=== PATIENT | female | born 1975 | race Caucasian/White ===

== ENCOUNTER 2022-06-17 14:18 | Outpatient (CLI) | payer MEDICAID, SELFPAY ==
[2022-06-17 23:08] LABS: Albumin* 4.8 g/dL (3.3-5.0); Chloride* 100 mmol/L (96-114); Sodium* 137 mmol/L (135-149)
[2022-06-17 23:09] LABS: Potassium* 4.3 mmol/L (3.6-5.1)
[2022-06-17 23:10] LABS: Bilirubin Total* 0.7 mg/dL (0.1-1.5); Creatinine* 0.7 mg/dL (0.5-1.5); Estimated Glomerular Filt Rate 106 ml/min
[2022-06-17 23:11] LABS: Alanine Aminotransferase* 22 U/L (4-35); Alkaline Phosphatase* 58 U/L (40-150); Aspartate Amino Transferase* 24 U/L (12-35); Blood Urea Nitrogen* 20 mg/dL (5-24); Calcium* 9.4 mg/dL (8.4-10.6); Carbon Dioxide* 29 mmol/L (20-32); Cholesterol* 229 mg/dL (90-199); Glucose* 77 mg/dL (60-115); Lipase* 75 U/L (23-300); Total Protein* 7.1 g/dL (6.0-8.3); Triglycerides* 126 mg/dL (40-149)
[2022-06-17 23:12] LABS: HDL Cholesterol* 53 mg/dL (>=50); LDL Cholesterol Calculated 151 mg/dL (<100)
== END 2022-06-17 14:19 | disposition home or self-care (01) ==
PROVIDERS: PCP Physician Assistant Medical; Visit Provider Physician Assistant Medical
DX: R10.13 Epigastric pain (principal)
CPT/HCPCS: 80053; 80061; 83690; 84443

== ENCOUNTER 2022-08-20 08:08 | Outpatient (CLI) | payer MEDICAID, SELFPAY ==
--- NOTE | 2022-08-20 08:15 | CRLHL7_ITS ---
For Patients: As a result of the Century Cures Act, medical imaging exams and procedure reports are released immediately into your electronic medical record. You may view this report before your referring provider. If you have questions, please contact your health care provider. INDICATION: Neck pain. COMPARISON: 03/08/2016. TECHNIQUE: Sagittal T1, T2, and STIR sequences. Axial T2/gradient sequences. FINDINGS: Normal vertebral body and facet alignment. No fractures. No vertebral body loss of height. No spondylolisthesis. No ligamentous injury. Normal marrow signal. No suspicious osseous lesions. Normal cord signal. No intradural mass or lesion. C1-2: No spinal canal narrowing. C2-3: No spinal canal neural foraminal narrowing. C3-4: Posterior disc bulge. No narrowing of spinal canal. No neural foraminal narrowing. C4-5: Disc degeneration posted disc bulge. No narrowing of spinal canal. No neural foraminal narrowing. C5-6: Stable disc degeneration with posterior disc bulge or disc osteophyte complex. Effacement of the ventral thecal sac and mild narrowing of the spinal canal. No neural foraminal narrowing. C6-7: Progress disc degeneration. Posterior disc bulging disc osteophyte complex. Mild narrowing of spinal canal. Moderate right and mild left neural foraminal narrowing. Potential impingement of the right C7 nerve root. C7-T1: Disc degeneration posterior disc bulge. No narrowing of spinal canal. Mild narrowing of the bilateral foramina. No spinal canal or neural foraminal narrowing in the visualized upper thoracic spine. Impression : 1. Normal alignment. No fractures 2. Normal cord signal. 3. Interval progression of cervical spondylosis. 4. At C5-6, stable disc degeneration with posterior disc bulge or disc osteophyte complex. Mild narrowing spinal canal. 5. At C6-7, mild narrowing of the spinal canal. Moderate right neural foraminal narrowing. Potential impingement of the right C7 nerve root. 6. At C7-T1, mild narrowing of the bilateral neural foramina Dictated by Charles Osorio MD @ 08/20/2022 3:55:43 PM (Electronically Signed)
== END 2022-08-20 08:09 | disposition home or self-care (01) ==
LOC: MRI 08:09
PROVIDERS: PCP Physician Assistant Medical; Visit Provider Physician Assistant Medical
DX: M54.2 Cervicalgia (principal); M47.892 Other spondylosis, cervical region; M50.322 Other cervical disc degeneration at C5-C6 level; M50.223 Other cervical disc displacement at C6-C7 level
CPT/HCPCS: 72141

== ENCOUNTER 2022-09-22 13:49 | Outpatient (CLI) | payer MEDICAID, SELFPAY ==
--- NOTE | 2022-09-22 14:00 | CRLHL7_ITS ---
For Patients: As a result of the Century Cures Act, medical imaging exams and procedure reports are released immediately into your electronic medical record. You may view this report before your referring provider. If you have questions, please contact your health care provider. BILATERAL SCREENING MAMMOGRAM WITH COMPUTER-AIDED DETECTION TECHNIQUE: CC and MLO views were obtained. These mammographic images have been obtained using full-field digital technique. These mammographic images were interpreted with the benefit of computer-aided detection. COMPARISON FILM: 08/04/21, 02/29/20, 01/30/19. FINDINGS: The breasts are almost entirely fatty IMPRESSION: There is no radiographic evidence for malignancy. ASSESSMENT: BI-RADS Category 2: Benign RECOMMENDATION: Routine screening mammogram in 1 year. A lay language report of this examination will be provided to the patient. Sp Smith M.D. Diagnostic Radiologist [email or web address] TYLER/no Transcribed: 2:03 [email or web address] sarabia/Dictated by: Sp Smith MD @ 09/23/2022 10:13:00 AM (Electronically Signed)
== END 2022-09-22 13:50 | disposition home or self-care (01) ==
PROVIDERS: PCP Physician Assistant Medical; Visit Provider Physician Assistant Medical
DX: Z12.31 Encounter for screening mammogram for malignant neoplasm of breast (principal)
CPT/HCPCS: 77067

== ENCOUNTER 2023-03-10 13:18 | Outpatient (CLI) | payer MEDICAID, SELFPAY ==
--- OUTSIDE RECORDS SUMMARY | 2023-03-10 13:21 | XMS_ITS | Continuity of Care Document ---
Author Name Unknown Organization [facility] Address [address] [place] [address] Phone Care Team Providers Care Supervising Producer Name Role Phone Bri HOWARD, PhD, Carlito Unavailable Unavai lable Allergies, Adverse Reactions, Alerts Substance Reaction Status Criticality No Known Allergies Active No Inform ation Medications Medication Instructions Dosage Effective Dates (start - stop) Status Comments FERROUS GLUCONATE (unknown strength) Not Available - Active CYMBALTA (unknown strength) Not Available - Active PROZAC (unknown strength) Not Available - Active TRAMADOL HCL ER (unknown strength) Not Available - Active GABAPENTIN (unknown strength) Not Available - Active AMITRIPTYLINE HCL (unknown strength) Not Available - Active HYDROCORTISONE (unknown strength) Not Available - Active TIROSINT (unknown strength) Not Available - Active PRAVASTATIN SODIUM (unknown strength) Not Available - Active Procedures Procedure Date Office/Outpatient Visit,[facility] [place] 2016 Advance Directives Directive Yes / No Effective Date File Name No Information Encounters Encounter Description Practice Location Reason(s) For Visit Diagnoses Date Provider Providers Copied on Encounter Office/Outpa tient Visit,[place], [place] [facility], [address], [place], [place], [id number] , [place] tel:[phone] [facility] [place] CervicalgiaLow back pain 7 Bri Esteban. [facility], [address], [place], [address], [place]. tel:[phone] Referring Provider: Jovanna Carr, [address], [address]. tel:[phone] [facility], [address], [place], [id number] , [place] tel: [phone] [facility] [place] Other intervertebral disc degeneration, lumbar regionCervicalgia 7 Bri Esteban. [facility], [address], [place], [address], [place]. tel: [phone] Family History Family Member Type Diagnosis Age At Onset No Information Payers Payer name Insurance type Covered alliance party ID Kristina nugent(s) [facility] [id number] [facility] [id number] Social History Type Description Quantity Date Captured Comments Alcohol Use Details Unknown Caffeine Use Details Unknown Tobacco Use Status Never smoked tobacco 2016 Smoking Status Never smoker Non-Smoking Tobacco Use Details : No Details Available : No Details Available Sex Female Vital Signs Date / Time: Height Weight BMI Pulse Rate Blood Pressure Temperature Respiratory Rate Body Surface Area Head Circumference Head Circ. Percentile Wt./Tay. Percentile BMI percentile Pulse Ox Inhaled Ox 1:31 PM 65.00 in 73.028 kg (161.00 lbs) 26.7 9 kg/m eter (2) 84 /min 129/84 mm[Hg] Chief Complaint And Reason For Visit No Information Reason For Referral Reason For Referral No Information History Of Present Illness Encounter Date Complaint History Of Prese nt Illness No Information Functional Status Date Functional Assessmen t No Information Instructions Date Instruction Additional Infor mation No Information Assessments Type Assessment Date assessment Cervicalgia assessment Low back pain Patient Care Teams Name Effective Dates (start - stop) Status Members No Information
[2023-03-10 23:25] LABS: Chlamydia DNA Amplified* NOT DETECTED (No Detected); GC DNA Amplified* NOT DETECTED (No Detected)
== END 2023-03-10 13:19 | disposition home or self-care (01) ==
LOC: LKVREF 13:19
PROVIDERS: PCP Physician Assistant Medical; Visit Provider Physician Assistant Medical
DX: Z00.00 Encounter for general adult medical examination without abnormal findings (principal); Z11.3 Encounter for screening for infections with a predominantly sexual mode of transmission
CPT/HCPCS: 87491; 87591

== ENCOUNTER 2023-03-16 08:12 | Outpatient (CLI) | payer MEDICAID, SELFPAY ==
--- OUTSIDE RECORDS SUMMARY | 2023-03-17 08:01 | XMS_ITS | Patient Health Record ---
Author Name Unknown Organization [facility] Address [address] [place] [address] [address] [place] [address] Care Team Providers Care Donor Services Technician Name Role Phone FabioЮлия shaikh Primary Care Provider Arias Simon Unavailable [phone] Frank Cochran Unavailable Unavailable ALLERGIES No Known Allergies REASON FOR REFERRAL No Information MEDICATIONS Medication SIG (Take, Route, Frequency, Duration) Notes Start Date End Date Status Lisinopril 10 MG 1 tablet Orally Once a day Active Atorvastatin Calcium 20 MG 1 tablet Oral ly Once a day Active Prazosin HCl 1 MG 1 capsule at bedtime Orally Once a day Active Levothyroxine Sodium 25 MCG 1 tablet in the morning on an empty stomach Orally Once a day Active Sucralfate 1 GM 1 tablet on an empty stomach Orally Twice a day Active Pantoprazole Sodium 40 MG 1 tablet Orall y Once a day Active DULoxetine HCl 60 MG 1 capsule Orally On ce a day Active busPIRone HCl 30 MG 1 tablet Orally Twic e a day Active lamoTRIgine 150 MG 1 tablet Orally Once a day Active SOCIAL HISTORY Tobacco Use: Social History Observation Description Date Details (start date - stop date) Never Smoker NA - NA Sex Assigned At : Social History Observation Description Sex Assigned At Unknown Tobacco Use/Smoking: Question Answer Notes Are you a nonsmoker PROBLEMS Problem Type ICD Code Onset Dates Problem Status W/U Status Risk SNOMED Code Notes Problem Radiculopathy , cervical region (M54.12) Active confirmed Cervical radiculopathy (00236239) Encounters Encounter Location Date Provider Diagnosis [facility] [address] [place] [address] [address] [place] [address] 10/11/2022 Arias Mcgill [facility] [address] [place] [address] [address] [place] [address] 11/03/2022 Arias [address] [facility] [address] [place] [address] 11/04/2022 Arias Mcgill Radiculopathy, cervical region M54.12 ASSESSMENTS Encounter Date Diagnosis Assessment Notes Treatment Notes Treatment Clinical Notes 11/04/2022 Radiculopathy, cervical region (ICD-10 - M54.12) PLAN OF TREATMENT No Information Insurance Providers Payer Name Payer Address Payer Phone Subscriber Number Group Number Insured Name Patient Relationship to Insured Coverage Start Date Coverage End Date [facility] [address] [address] [place], [place] [id number] Dee Santillan Self - patient is the insured 6 MEDICAL (GENERAL) HISTORY Medical History History ICD Code acid reflux anxiety asthma bipolar depression headaches high cholesterol hypertension sleep apnea Surgical History Surgery Date(Month/Year) breast reduction 2008 hyesterectomy 2019 deviated septum 2014 ablation 2014
== END 2023-03-16 08:13 | disposition home or self-care (01) ==
LOC: NFLDREF 03-17 08:00
PROVIDERS: PCP Physician Assistant Medical; Referring Provider Physician Assistant Medical; Visit Provider Physician Assistant Medical
DX: Z00.00 Encounter for general adult medical examination without abnormal findings (principal); R23.2 Flushing; G89.4 Chronic pain syndrome
CPT/HCPCS: 80053; 82607; 83001; 84443

== ENCOUNTER 2023-04-06 14:12 | Outpatient (CLI) | payer MEDICAID, SELFPAY ==
--- OUTSIDE RECORDS SUMMARY | 2023-04-06 14:15 | XMS_ITS | Continuity of Care Document ---
Author Name Unknown Organization [facility] Address [address] [place] [address] Phone Care Team Providers Care Cruller Maker Machine Name Role Phone Bri HOWARD, PhD, Carlito [...] - Active Procedures Procedure Date Office/[place]patient Visit[place] [facility] [place] Advance Directives Directive Yes / No Effective Date File Name No Information Encounters Encounter Description Practice Location Reason(s) For Visit Diagnoses Date Provider Providers Copied on Encounter Office/Outpa tient Visit,New, [facility], [address], [place], [place], [id number] , [place] tel:[phone] [facility] [place] CervicalgiaLow back pain 7 Bri Esteban. [facility], [address], [place], [address], [place]. tel:[phone] Referring Provider: Jovanna Carr, [address], [address]. tel:[phone] [facility], [address], [place], [id number] , [place] tel: [phone] [facility] [place] Other intervertebral disc degeneration, lumbar regionCervicalgia 7 Bri Esteban. [facility], [address], [place], [address], [place]. tel: [phone] Family History Family Member Type Diagnosis Age At Onset No Information Payers Payer name Insurance type Covered libertarian ID Kristina nugent(s) [facility] [id number] [facility] [id number] Social History Type Description Quantity Date Captured [...]
== END 2023-04-06 14:13 | disposition home or self-care (01) ==
PROVIDERS: PCP Physician Assistant Medical; Visit Provider Physician Assistant Medical
DX: Z01.818 Encounter for other preprocedural examination (principal); D64.9 Anemia, unspecified; K21.9 Gastro-esophageal reflux disease without esophagitis
CPT/HCPCS: 80175; 82607; 82746; 82784; 83540; 83550; 86364

== ENCOUNTER 2023-04-07 09:07 | Outpatient (CLI) | payer MEDICAID, SELFPAY ==
--- OUTSIDE RECORDS SUMMARY | 2023-04-13 08:27 | XMS_ITS | Continuity of Care Document ---
Author Name Unknown Organization [facility] Address [address] [place] [address] Phone Care Team Providers Care Manager Camp Name Role Phone Bri HOWARD, PhD, Carlito [...] Visit,New, Mod [facility], [address], [place], [place], [id number] , [place] tel:[phone] [facility] [place] CervicalgiaLow back pain 7 Bri Esteban. [facility], [address], [place], [address], [place]. tel:[phone] Referring Provider: Jovanna Carr, [address], [address]. tel:[phone] [facility], [address], [place], [id number] , [place] tel: [phone] [facility] [place] Other intervertebral disc degeneration, lumbar regionCervicalgia 7 Bri Esteban. [facility], [address], [place], [address], [place]. tel: [phone] Family History Family Member Type Diagnosis Age At Onset No Information Payers Payer name Insurance type Covered constitution party ID Kristina nugent(s) [facility] [id number] [facility] [id number] Social History Type Description Quantity Date Captured [...]
--- OUTSIDE RECORDS SUMMARY | 2023-04-13 08:27 | XMS_ITS | Patient Health Record ---
Author Name Unknown Organization [facility] Address [address] [place] [address] [address] [place] [address] Care Team Providers Care Ramp Supervisor Name Role Phone FabioЮлия shaikh Primary Care Provider Arias Simon Unavailable [phone] Frank Cochran Unavailable Unavailable ALLERGIES No Known [...] cervical region (M54.12) Active confirmed Cervical radiculopathy ([id number]) Encounters Encounter Location Date Provider Diagnosis [facility] [address] [place] [address] [address] [place] [address] 10/11/2022 Arias Mcgill [facility] [address] [place] [address] [address] [place] [address] 11/03/2022 [address] [facility] [address] [place] [address] 11/04/2022 Arias Mcgill Radiculopathy, cervical region M54.12 ASSESSMENTS Encounter Date Diagnosis Assessment Notes Treatment Notes Treatment Clinical Notes 11/04/2022 Radiculopathy, cervical region (ICD-10 - M54.12) PLAN OF TREATMENT No Information Insurance Providers Payer Name Payer Address Payer Phone Subscriber Number Group Number Insured Name Patient Relationship to Insured Coverage Start Date Coverage End Date [facility] [address] [address] [place], [place] [id number] Dee Santillan Self - patient is the insured 6 MEDICAL (GENERAL) HISTORY Medical History History ICD Code acid reflux anxiety asthma bipolar depression headaches high cholesterol hypertension sleep apnea Surgical History Surgery Date(Month/Year) breast reduction 2008 hyesterectomy 2019 deviated septum 2014 ablation 2014
== END 2023-04-07 09:08 | disposition home or self-care (01) ==
LOC: NFLDREF 04-13 08:25
PROVIDERS: PCP Physician Assistant Medical; Referring Provider Physician Assistant Medical; Visit Provider Physician Assistant Medical
DX: K21.9 Gastro-esophageal reflux disease without esophagitis (principal)
CPT/HCPCS: 87338

== ENCOUNTER 2023-04-18 13:35 | Outpatient (CLI) | payer MEDICAID, SELFPAY ==
--- NOTE | 2023-04-18 13:45 | CRLHL7_ITS ---
For Patients: As a result of the Cures Act, medical imaging exams and procedure reports are released immediately into your electronic medical record. You may view this report before your referring provider. If you have questions, please contact your health care provider. INDICATION: Syncope and collapse. TECHNIQUE: Sagittal T1, axial and coronal FLAIR axial T2, diffusion-weighted and susceptibility weighted images are obtained. FINDINGS: The lateral 3rd and 4th ventricles normal in size and shape. No evidence of acute ischemic infarction. No evidence of intracranial hemorrhage. No mass effect. No periventricular white matter lesions. The brainstem and cerebellum appear normal. The orbits, sella turcica, paranasal sinuses and skullbase are unremarkable. IMPRESSION: Negative MRI brain. No evidence of acute ischemic infarction, intracranial hemorrhage or mass. Dictated by Saud Lindsay MD @ 04/19/2023 10:12:03 AM (Electronically Signed)
--- OUTSIDE RECORDS SUMMARY | 2023-04-18 13:45 | XMS_ITS | Patient Health Record ---
Author Name Unknown Organization [facility] Address [address] [place] [address] [address] [place] [address] Care Team Providers Care Head Pastry Chef Name Role Phone FabioЮлия shaikh Primary Care Provider Arias Simon Unavailable [phone] Frank Cochran Unavailable Unavailable ALLERGIES No Known [...] cervical region (M54.12) Active confirmed Cervical radiculopathy ([id number]) Encounters Encounter Location Date Provider Diagnosis [facility] [address] [place] [address] [address] [place] [address] 10/11/2022 Arias Mcgill [facility] [address] [place] [address] [address] [place] [address] 11/03/2022 [address] [facility] [address] [place] [address] 11/04/2022 Arias Mcgill Radiculopathy, cervical region M54.12 ASSESSMENTS Encounter Date Diagnosis Assessment Notes Treatment Notes Treatment Clinical Notes 11/04/2022 Radiculopathy, cervical region (ICD-10 - M54.12) PLAN OF TREATMENT No Information Insurance Providers Payer Name Payer Address Payer Phone Subscriber Number Group Number Insured Name Patient Relationship to Insured Coverage Start Date Coverage End Date [facility] [address] [address] [place], [place] [id number] Dee Santillan Self - patient is the insured 6 MEDICAL (GENERAL) HISTORY Medical History History ICD Code acid reflux anxiety asthma bipolar depression headaches high cholesterol hypertension sleep apnea Surgical History Surgery Date(Month/Year) breast reduction 2008 hyesterectomy 2019 deviated septum 2014 ablation 2014
--- OUTSIDE RECORDS SUMMARY | 2023-04-18 13:45 | XMS_ITS | Continuity of Care Document ---
Author Name Unknown Organization [facility] Address [address] [place] [address] Phone Care Team Providers Care Vtc Technician Name Role Phone Bri HOWARD, PhD, Carlito [...] - Active Procedures Procedure Date Office/[place]patient Visit,[place] [place] Advance Directives Directive Yes / No Effective Date File Name No Information Encounters Encounter Description Practice Location Reason(s) For Visit Diagnoses Date Provider Providers Copied on Encounter Office/Outpa tient Visit,New, [place] [facility], [address], [place], [place], [id number] , [place] tel:[phone] [facility] [place] CervicalgiaLow back pain 7 Bri Esteban. [facility], [address], [place], [address], [place]. tel:[phone] Referring Provider: Jovanna Carr, [address], [address]. tel:[phone] [facility], [address], [place], [id number] , [place] tel: [phone] [facility] [place] Other intervertebral disc degeneration, lumbar regionCervicalgia 7 Bri Esteban. [facility], [address], [place], [address], [place]. tel: [phone] Family History Family Member Type Diagnosis Age At Onset No Information Payers Payer name Insurance type Covered libertarian ID Kristina nugent(s) [facility] [id number] [facility] [id number] Social History Type Description Quantity Date Captured [...]
== END 2023-04-18 13:36 | disposition home or self-care (01) ==
LOC: MRI 13:43
PROVIDERS: PCP Physician Assistant Medical; Visit Provider Physician Assistant Medical
DX: R55 Syncope and collapse (principal)
CPT/HCPCS: 70553; A9575

== ENCOUNTER 2023-06-15 11:25 | Emergency (ER) | payer MEDICAID, SELFPAY ==
[2023-06-15 11:29] VITALS: BP 133/89; PULSE 16; RESP 96; TEMP 36.8; O2SAT 99; BMI 25.2
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
[2023-06-15 11:55] LABS: Appearance Urine Clear (Clear); Bilirubin Urine Negative (Negative); Blood Urine Trace-intact (Negative); Color Urine Yellow (Yellow); Glucose Urine Negative (Negative); Ketones Urine Negative (Negative); Leukocyte Esterase Urine Negative (Negative); Nitrite Urine Negative (Negative); Protein Urine Negative (Negative); Urobilinogen Urine 0.2 (0.2-1.0)
[2023-06-15 12:19] LABS: RBC Urine 0-2 (0-2); WBC Urine 0-2 (0-5)
[2023-06-15 12:20] LABS: Amorphous Sediment Urine Few
--- OUTSIDE RECORDS SUMMARY | 2023-06-15 12:53 | XMS_ITS | Continuity of Care Document ---
Author Name Unknown Organization [facility] Address [address] [place] [address] Phone Care Team Providers Care Airbrush Artist Technical Name Role Phone Bri HOWARD, PhD, Carlito [...] - Active Procedures Procedure Date Office/Outpatient Visit,Demetrius [facility] 2016 Advance Directives Directive Yes / No Effective Date File Name No Information Encounters Encounter Description Practice Location Reason(s) For Visit Diagnoses Date Provider Providers Copied on Encounter Office/Outpa tient Visit,New, [place] [facility], [address], [place], [place], [id number] , [place] tel:[phone] [facility] [place] CervicalgiaLow back pain 7 Bri Esteban. [facility], [address], [place], [address], [place]. tel:[phone] Referring Provider: Jovanna Carr, [address], [address]. tel:[phone] [facility], [address], [place], [id number] , [place] tel: [phone] [facility] [place] Other intervertebral disc degeneration, lumbar regionCervicalgia 7 Bri Esteban. [facility], [address], [place], [address], [place]. tel: [phone] Family History Family Member Type Diagnosis Age At Onset No Information Payers Payer name Insurance type Covered green party ID Kristina nugent(s) [facility] [id number] [facility] [id number] Social History Type Description Quantity Date Captured [...]
--- NOTE | 2023-06-15 13:23 | ED.NURSE ---
Assumed care of pt at 1300. Patient talking to DEC senior power plant operator in room at this time. Pt on video monitoring for safety.
--- NOTE | 2023-06-15 13:50 | ED.NURSE ---
Addendum entered by Caitlin Sprague RN 06/15/23 14:10: Dr. Howell notified. Dr. Mccain is not pt's provider. Original Note: DEC assessment completed. Pt tearful in room. Dr. Mccain notified.
== END 2023-06-15 14:54 | disposition home or self-care (01) ==
PROVIDERS: Emergency Provider Emergency Medicine; PCP Physician Assistant Medical
DX: F32.A Depression, unspecified (principal)
CPT/HCPCS: 81001; 99281; 99283; 99284

== ENCOUNTER 2024-06-07 10:31 | Outpatient (CLI) | payer BC, SELFPAY ==
--- OUTSIDE RECORDS SUMMARY | 2024-06-12 15:32 | XMS_ITS | Patient Health Record ---
Author Organization [facility] Address [address] [place] [address] [address] [place] [address] Care Team Providers Care Systems Architecture Analyst Name Role Phone Юлия Rankin Primary Care Provider Arias Simon Unavailable [phone] Frank Segal PA-C Unavailable Unavailable Allergies No Known Allergies Reason For Referral No Information Medications Medication SIG (Take, Route, Frequency, Duration) Notes [...] 1 tablet Orally Once a day Active Social History Tobacco Use: Social History Observation Description Date Details (start date - stop date) Never Smoker NA - NA Tobacco Use/Smoking: Question Answer Notes Are you a nonsmoker Problems Problem Type SNOMED Code ICD Code Onset Dates Problem Status W/U Status Risk Notes Problem Cervical radiculopathy (65132773) Radiculopathy , cervical region (M54.12) Active confirmed Plan Of Treatment No Information Insurance Providers Payer Name Payer Address Payer Phone Subscriber Number Group Number Insured Name Patient Relationship to Insured Coverage Start Date Coverage End Date [facility] [address] [address] [place], [place] [id number] Dee Santillan Self - patient is the insured 6 Medical (General) History Medical History History ICD Code acid reflux anxiety asthma bipolar depression headaches high cholesterol hypertension sleep apnea Surgical History Surgery Date(Month/Year) ablation 2014 deviated septum 2014 hyesterectomy 2019 breast reduction 2008
--- OUTSIDE RECORDS SUMMARY | 2024-06-12 15:33 | XMS_ITS | Continuity of Care Document ---
Author Organization [facility] Address [address] [place] [address] Phone Care Team Providers Care Domestic Housekeeper Name Role Phone Bri HOWARD, PhD, Carlito [...] Procedures Procedure Date Office/Outpatient Visit,Demetrius [facility] 2016 Advance Directives Directive Yes / No Effective Date File Name No Information Encounters Encounter Description Practice Location Reason(s) For Visit Diagnoses Date Provider Providers Copied on Encounter Office/Outpa tient Visit,New, [facility], [address], [place], [place], [id number] , [place] tel:[phone] [facility] [place] CervicalgiaLow back pain 7 Bri Esteban. [facility], [address], [place], [address], [place]. tel:[phone] Referring Provider: Jovanna Maldonado, [address], [address]. tel:[phone] [facility], [address], [place], [id number] , [place] tel: [phone] [facility] [place] Other intervertebral disc degeneration, lumbar regionCervicalgia 7 Bri Esteban. [facility], [address], [place], [address], [place]. tel: [phone] Family History Family Member Type Diagnosis Age At Onset No Information Payers Payer name Insurance type Covered green party ID Kristina nugent(s) [facility] [id number] [facility] [id number] Social History Type Description Quantity Date Captured [...]
--- OUTSIDE RECORDS SUMMARY | 2024-06-12 15:33 | XMS_ITS | Clinical Summary ---
Author Organization [facility] Address [address] [place] [address] Care Team Providers Care Interstate Bus Driver Name Role Phone [facility]- Primary Care Provider Medications Medication Sig Dispensed Refills Start Date End Date Status busPIRone (BUSPAR) 15 MG tablet 08/08/2019 Active pravastatin (PRAVACHOL) 10 MG tablet Take 10 mg by mouth Active levothyroxine (SYNTHROID/LEVOTHROID) 25 MCG tablet Take 25 mcg by mouth Active gabapentin (NEURONTIN) 100 MG capsule Take 100 mg by mouth Active Social History Tobacco Use Types Packs/Day Years Used Date Smoking Tobacco: Never Assessed Adolescent Education Answer Date Record ed Getting School Help Needed Not on file 05/28 Sex and Gender Information Value Date Recorded Sex Assigned at Not on file Gender Identity Not on file Sexual Orientation Not on file Last Filed Vital Signs Vital Sign Reading Time Taken Comments Blood Pressure 109/76 09/17/2020 11:15 PM LAN MANAGER Pulse 91 09/17/2020 11:15 PM LAN MANAGER Temperature 35.9 ??C (96.7 ??F) 09/17/2020 9:45 PM CS T Respiratory Rate 20 09/17/2020 8:35 PM LAN MANAGER Oxygen Saturation 96% 09/17/2020 11:15 PM LAN MANAGER Inhaled Oxygen Concentration - - Weight - - Height - - Body Mass Index - - Plan of Treatment Not on file Care Teams Interstate Bus Driver Relationship Specialty Start Date End Date [facility]- [address] [place], [place] [phone] PCP - General 09/17/20
--- OUTSIDE RECORDS SUMMARY | 2024-06-12 15:33 | XMS_ITS | Referral Summary ---
Author Organization [facility] Address [address] [place] [address] Care Team Providers Care Recreation Therapy Aides Teacher Name Role Phone [facility]- Primary Care Provider Medications Medication Sig Dispensed [...] Comments Blood Pressure 109/76 09/17/2020 11:15 PM [employer] MACHINE OPERATOR Pulse 91 09/17/2020 11:15 PM [employer] MACHINE OPERATOR Temperature 35.9 ??C (96.7 ??F) 09/17/2020 9:45 PM CS T Respiratory Rate 20 09/17/2020 8:35 PM [employer] MACHINE OPERATOR Oxygen Saturation 96% 09/17/2020 11:15 PM [employer] MACHINE OPERATOR Inhaled Oxygen Concentration - - Weight - - Height - - Body Mass Index - - Plan of Treatment Not on file Care Teams Recreation Therapy Aides Teacher Relationship Specialty Start Date End Date [facility]- [address] [place], [place] [phone] PCP - General 09/17/20
--- OUTSIDE RECORDS SUMMARY | 2024-06-12 15:33 | XMS_ITS | Clinical Summary ---
Author Organization [facility] Address [place], [place] [address] Care Team Providers Care Humanities Department Chair Name Role Phone Юлия Rankin PA-C Primary Care Provider + [phone] Allergies No known active allergies Medications Medication Sig Dispensed Refills Start Date End Date Status multivitamin (MVI) tablet Take 1 tablet by mouth once daily. 0 08/26/2010 Active albuterol HFA 90 mcg/actuation inhaler Inhale 2 Puffs by mouth 4 times daily if needed. Active cholecalciferol (VITAMIN D) 1,000 unit tablet Take 1,000 Units by mouth once daily. Active levothyroxine (SYNTHROID) 25 mcg tablet Take 25 mcg by mouth before breakfast. Active albuterol-ipratropium (DUONEB) (2.5-0.5 mg) in 3 mL NEBULIZATION solution USE ONE VIAL IN NEBULIZER FOUR TIMES DAILY 11/09/2021 Active lamoTRIgine (LAMICTAL) 25 mg tablet Take 25 mg by mouth two times daily. 04/02/2022 Active lisinopriL (PRINIVIL; ZESTRIL) 10 mg tablet Take 10 mg by mouth once daily. 03/02/2022 Active LORazepam (ATIVAN) 1 mg tablet Take 1 mg by mouth once daily if needed. 03/25/2022 Active prazosin (MINIPRESS) 1 mg capsule Take 1 mg by mouth at bedtime. 01/27/2022 Active valACYclovir (VALTREX) 1 gram tablet Take 2 g by mouth 2 times daily if needed. 03/06/2022 Active atorvastatin (LIPITOR) 20 mg tablet TAKE 1 TABLET BY MOUTH EVERY DAY FOR CHOLESTEROL. STOP PRAVASTATIN 09/19/2022 Active sucralfate (CARAFATE) 1 gram tablet Take 1 g by mouth 3 times daily if needed. 09/24/2022 Active ARIPiprazole (ABILIFY) 5 mg tablet Take 2.5 mg by mouth once daily. 06/18/2023 Active albuterol 0.083% (2.5 mg/3 mL) neb solution Inhale 2.5 mg via a nebulizer every 4 hours if needed. 12/14/2022 Active lamoTRIgine (LAMICTAL) 100 mg tablet Take 100 mg by mouth two times daily. 06/07/2023 Active docosanol 10 % (ABREVA) 10 % cream Apply topically to affected area(s). As needed Active busPIRone (BUSPAR) 10 mg tablet Take 10 mg by mouth two times daily. Take with 30 mg tab for total of 40 mg BID Active busPIRone (BUSPAR) 30 mg tablet Take 30 mg by mouth two times daily. Take with 10 mg tab for total of 40 mg BID Active ketorolac 0.5 % ophthalmic (ACULAR) solution Place 1 Drop into left eye four times daily. Beginning 1 day before surgery and use until gone. 03/08/2023 Active prednisoLONE acetate 1% ophthalmic (ECONOPRED PLUS, PRED FORTE, OMNIPRED) suspension Place 1 Drop into left eye four times daily. 09/07/2023 Active moxifloxacin (VIGAMOX) 0.5 % ophthalmic solution Place 1 Drop into left eye four times daily. 09/07/2023 Active Advair HFA 230-21 mcg/actuation inhaler Inhale 1 Puff by mouth two times daily. 09/07/2023 Active Active Problems Problem Noted Date Diagnosed Date Presbyopia 08/21/2019 Myopia of right eye 08/21/2019 Regular astigmatism of left eye 08/21/2019 Moderate persistent asthma 04/26/2013 Hypertension 04/16/2013 Premenstrual dysphoric disorder 01/20/2013 Sleep disorder 01/20/2013 Perimenopausal vasomotor symptoms 04/28/2012 Anxiety state, unspecified 06/04/2010 Perioral dermatitis 10/14/2009 Unspecified asthma(493.90) 04/16/2009 Overview (01/08/2013): Moderate persistent. Dulera 100/5mcg 2 puffs twice daily, Iza over the counter. Triggers: pollen, cat dander, dust Allergic rhinitis, cause unspecified 12/04/2007 MALAISE AND FATIGUE 08/31/2000 HYPERCHOLESTEROLEMIA, PURE 06/09/2000 herpes Overview (12/08/2014): recurrent labialis Cervical disc herniation Resolved Problems Problem Noted Date Diagnosed Date Resolved Date Breakthrough bleeding on control pills 3 01/20/2013 Dyslipidemia 10/22/2012 04/16/2013 Overview (01/08/2013): LDL goal < 130. Hypertrophy of breast 02/27/20092008 Cough 12/12/2001 04/16/2009 Polydipsia 06/20/2001 04/16/2009 CONTRACEPTIVE PRESCRIPTION, MEASURE NEC 12/14/2000 06/04/2010 Immunizations Name Administration Dates Next Due Influenza, IIV3 (Age >=3 years) 06/10/2011,06/04 Pneumococcal Poly,23-Valent (Pneumovax) 06/04/20 10 Td (Age >=7 Years) 11/07/1996 Tdap 04/01/2008 Family History Medical History Relation Name Comments Hyperlipidemia Father Psychiatric illness Father in 30's, suicide Alcohol/Drug Mother etoh Diabetes Mother Hyperlipidemia Mother Cancer-breast Other Maternal Great Grandmother Genetic Other Mother: obese, smoker, ETOH~Father: dec in 30s suicide~Grprs: suicide, MS~Sibs: 0~Child: A\T\W Relation Name Status Comments Father Mother Other Social History Tobacco Use Types Packs/Day Years Used Date Smoking Tobacco: Never Smokeless Tobacco: Never Tobacco Cessation:Counseling Given: Not Answered Alcohol Use Standard Drinks/Week Comments Yes 0 (1 standard drink = 0.6 oz pur e alcohol) 1 glass wine/daily Social Connections Answer Date Recorded Frequency of Communication with Friends and Fami ly Not on file 10/08/2022 Sex and Gender Information Value Date Recorded Sex Assigned at Not on file Gender Identity Not on file Sexual Orientation Not on file Obstetrics History Para Term AB IAB SAB Ectopic Multiple Livin g Live Births 2 2 2 0 0 0 0 0 0 2 2 Date Outcome GA Total Labor Labor/2nd/3rd Weight Sex Type Anes PTL Noemi A1 A5 Name Clin 1999 Term 40w 0d F Vag Living 2004 Term 40w 0d M Vag Living Last Filed Vital Signs Vital Sign Reading Time Taken Comments Blood Pressure 117/72 09/13/2023 12:55 PM AUTOMATION DEVELOPER Pulse 71 09/13/2023 12:55 PM AUTOMATION DEVELOPER Temperature 36 ??C (96.8 ??F) 09/13/2023 12:35 PM AUTOMATION DEVELOPER Respiratory Rate 16 09/13/2023 12:55 PM AUTOMATION DEVELOPER Oxygen Saturation 100% 09/13/2023 12:55 PM AUTOMATION DEVELOPER Inhaled Oxygen Concentration - - Weight 66.7 kg (147 lb) 09/12/2023 3:23 PM AUTOMATION DEVELOPER Height 162.6 cm (5' 4) 09/12/2023 3:23 PM AUTOMATION DEVELOPER Body Mass Index 25.23 09/12/2023 3:23 PM AUTOMATION DEVELOPER Plan of Treatment Health Maintenance Due Date Last Done Comments Depression screening for age 12+ 1985 HIV for age 15-65 1988 Hepatitis C screening for ag e 18-79 1991 Pneumococcal series for age 6-64 (2 of 2 - PCV) 06/04/2011 06/04/2010 Tetanus booster 04/01/2018 04/01/2008, 11/07/1996 Colonoscopy through age 75 2018 Mammogram for age 45-75 2018 10/08/19 16, 08/21/2014, 08/07/2013, Additional history exists Lipids for age 45-75 08/05/2019 08/05/2014, 01/03/2014, 06/27/2013, Additional history exists Pap test for age 21-65 01/31/2023 0, 02/01/2020, 04/28/2012, Additional history exists Zoster (shingles) series for age 50+ (1 of 2) 2023 BMI (ht and wt on same day) for age 18+ 10/08/2023 10/08/2022, 03/23/2017, 01/27/2017, Additional history exists COVID-19 vaccine series ( season) 2024 03/03/2022, 09/25/2021, 09/03/2021 Influenza for age 50-64 04/22/2024 06/10/2011, 06/04 Tdap Completed 04/01/2008 Medical Devices Implanted Type Area Wildlife Manager Device Identifier Shelf Expiration Date Model / Serial / Lot Iol Sac +21 [employer]andrakant [id number] - [id number] Implanted:Qty: 1 on 09/13/2023 by Vero Ramirez MD at [facility] Left: Eye [employer] 04/08/2025 [id number] / [id number] / Procedures Procedure Name Priority Date/Time Associated Diagnosis Comments BOOKKEEPING ASSISTANT THIN PREP PAP SCREEN IMAGED Routine 02/01/2020 2:00 PM CDT XR MAMMO BILAT SCREEN FFDM (IA) Routine 10/08/2015 3:22 PM AUTOMATION DEVELOPER Visit for screening mammogram LIPID PANEL W REFLEX MEASURED LDL Routine 08/05/2014 5:13 PM AUTOMATION DEVELOPER HYPERCHOLESTEROLEMI A, PURE from Last 3 Months or Most Recently Relevant to Health Maintenance Results * BOOKKEEPING ASSISTANT THIN PREP PAP SCREEN IMAGED (02/01/2020 2:00 PM CDT) Case Report Gynecologic Cytology Report ? Case: [id number] ? Authorizing Provider: ??Юлия Rankin PA-C ?Collected: ? 02/01/2020 1400 ? Ordering Location: ? [facility] ?Received: ?02/04/2020 0710 ? First Screen: ?Sage Melendrez ? Specimen: ?BOOKKEEPING ASSISTANT ThinPrep Vial Screening, Cervical/Vaginal ? 02/07/2020 2:[address] [facility] INTERPRETATION/ RESULT NEGATIVE FOR INTRAEPITHELIAL LESION OR MALIGNANCY (NIL) (none) 02/07/2020 2:[address] [facility] IMEN ADEQUACY Satisfactory for evaluation Endocervical component present 02/07/2020 2:[address] [facility] HPV REQUEST HPV and PAP 02/07/2020 2:[address] [facility] Date of LMP 01/11/2020 02/07/2020 2:[address] [facility] Last Pap Date 02/07/2020 2:[address] [facility] Comment:unknown Additional Information 02/07/2020 2:[address] [facility] Comment: Interpreted at [facility] - [address], [place] [address] Automated Review Successful 02/07/2020 2:[address] [facility] Comment:Specimen processed s uccessfully by automated x ray physician device, ThinPrep Imaging System, [employer] ANCILLARY TESTING BOOKKEEPING ASSISTANT HPV Ordered, Please see separate report 02/07/2020 2:[address] [facility] Note The pap test is a screening technique, not a diagnostic procedure. It is used primarily to screen for squamous cancers and precursor lesions. Published studies have shown that it is subject to both false negative and false positive results. The pap test should not be used as the sole means to diagnose or exclude pre-malignant and malignant lesions. 02/07/2020 2:[address] [facility] Other (Cervical/Vagina l) 02/01/2020 2:00 PM CDT 02/04/2020 7:10 AM CDT Юлия Rankin PA-C PATHOLOG[facility] [address] [place] [address], [place] * XR MAMMO BILAT SCREEN FFDM (10/08/2015 3:22 PM AUTOMATION DEVELOPER) Anatomical Region Laterality Modality BREASTS, Breast Left, Breast Right Bilateral Mammography Impressions 10/09/2015 12:22 PM AUTOMATION DEVELOPER ??There is no radiographic evidence for malignancy. ??Recommend annual mammograms. A lay language report of this examination will be provided to the patient. MAMMOGRAM ASSESSMENT: ??ACR 2 Benign Narrative 10/09/2015 12:22 PM AUTOMATION DEVELOPER XR MAMMO BILAT SCREEN FFDM [G0202.0] CLINICAL HISTORY: ??This is an asymptomatic 40 y.o. patient. INDICATION FOR EXAM: Mammogram Screening. TECHNIQUE: CC & MLO views were obtained. ??This digital study was evaluated with the assistance of Computer-Aided Detection. COMPARISON FILMS: Yes 08/21/14 [facility] 08/03/13 [facility] FINDINGS: ??Mammographically, the breast tissue is almost entirely fat. ??No suspicious masses or microcalcifications. ??Benign appearing calcifications within both breasts and Post surgical changes within ??both breasts. Stacie Rosado MD MAMMO * LIPID PANEL W REFLEX MEASURED LDL (08/05/2014 5:13 PM AUTOMATION DEVELOPER) CHOLESTEROL,TOTAL 172 100 - 199 mg/dL 08/06/2014 3:47 PM AUTOMATION DEVELOPER [facility] TRIGLYCERIDES 84 <150 mg/dL 08/06/2014 3:47 PM AUTOMATION DEVELOPER [facility] HDL CHOLESTEROL 53 >40 mg/dL 4 3:47 PM AUTOMATION DEVELOPER [facility] NON-HDL CHOLESTEROL 119 <145 mg/dl 08/06/2014 3:47 PM AUTOMATION DEVELOPER [facility] CHOL/HDL RATIO 3.25 <4.50 08/06/2014 3:47 PM AUTOMATION DEVELOPER [facility] LDL CHOLESTEROL 102 <=130 mg/dL 08/06/2014 3:47 PM AUTOMATION DEVELOPER [facility] PATIENT STATUS FASTING 08/06/2014 3:47 PM AUTOMATION DEVELOPER [facility] Blood specimen (specimen) BLOOD SPECIMEN / Unknown Venipuncture / Unknown 08/05/2014 5:13 PM AUTOMATION DEVELOPER 08/05/2014 5:13 PM AUTOMATION DEVELOPER Autumn Mota DO [facility] [address] [place] [address], from Last 3 Months or Most Recently Relevant to Health Maintenance Advance Directives * Full Code (Latest Code Status on File) Date Activated Date Inactivated Comments 09/13/2023 11:16 AM 09/13/2023 3:07 PM Question Answer Comments Code Status Discussion: Unable to Assess Preferences, Provider to review later * Full Code Date Activated Date Inactivated Comments 12/31/2016 12:15 PM 12/31/2016 3:32 PM * Full Code Date Activated Date Inactivated Comments 03/05/2009 8:37 AM 03/05/2009 4:18 PM Care Teams Humanities Department Chair Relationship Specialty Start Date End Date Юлия Rankin PA-C [address] [place] [address] PCP - General Emergency Medicine 02/16/22
== END 2024-06-07 10:32 | disposition home or self-care (01) ==
LOC: NFLDREF 06-12 15:31
PROVIDERS: PCP Physician Assistant Medical; Referring Provider Physician Assistant Medical; Visit Provider Physician Assistant Medical
DX: Z00.00 Encounter for general adult medical examination without abnormal findings (principal); E55.9 Vitamin D deficiency, unspecified; R53.83 Other fatigue; E03.9 Hypothyroidism, unspecified; E78.5 Hyperlipidemia, unspecified; I10 Essential (primary) hypertension; Z11.59 Encounter for screening for other viral diseases; F41.9 Anxiety disorder, unspecified; Z11.3 Encounter for screening for infections with a predominantly sexual mode of transmission
CPT/HCPCS: 80053; 80061; 82306; 82607; 84443; 86592; 86703; 86803

== ENCOUNTER 2024-07-24 15:50 | Outpatient (CLI) | payer BC, SELFPAY ==
--- OUTSIDE RECORDS SUMMARY | 2024-07-24 15:53 | XMS_ITS | Patient Health Record ---
Author Organization [facility] Address [address] [place] [address] [address] [place] [address] Care Team Providers Care Representative Phlebotomy Services Name Role Phone Юлия Rankin Primary Care Provider Arias Simon Unavailable [phone] Frank Segal PA-C Unavailable Unavailable Allergies No [...] W/U Status Risk Notes Problem Cervical radiculopathy (19004897) Radiculopathy , cervical region (M54.12) Active confirmed Plan Of Treatment No Information Insurance Providers Payer Name Payer Address Payer Phone Subscriber Number Group Number Insured Name Patient Relationship to Insured Coverage Start Date Coverage End Date [facility] [address] [address] [place], [place] [id number] Dee Santillan Self - patient is the insured 6 Medical (General) History Medical History History ICD Code acid reflux anxiety asthma bipolar depression headaches high cholesterol hypertension sleep apnea Surgical History Surgery Date(Month/Year) ablation 2014 deviated septum 2014 hyesterectomy 2019 breast reduction 2008
--- OUTSIDE RECORDS SUMMARY | 2024-07-24 15:53 | XMS_ITS | Continuity of Care Document ---
Author Organization [facility] Address [address] [place] [address] Phone Care Team Providers Care Tool Repairer Name Role Phone Bri HOWARD, PhD, Carlito [...] - Active Procedures Procedure Date Office/Outpatient Visit,[facility] 2016 Advance Directives Directive Yes / No Effective Date File Name No Information Encounters Encounter Description Practice Location Reason(s) For Visit Diagnoses Date Provider Providers Copied on Encounter Office/Outpa tient Visit,[facility], [address], [place], [place], [id number] , [place] tel:[phone] [facility] [place] CervicalgiaLow back pain 7 Bri Esteban. [facility], [address], [place], [address], [place]. tel:[phone] Referring Provider: Jovanna Maldonado, [address], [address]. tel:[phone] [facility], [address], [place], [id number] , [place] tel: [phone] [facility] [place] Other intervertebral disc degeneration, lumbar regionCervicalgia 7 Bri Esteban. [facility], [address], [place], [address], [place]. tel: [phone] Family History Family Member Type Diagnosis Age At Onset No Information Payers Payer name Insurance type Covered republican ID Kristina nugent(s) [facility] [id number] [facility] [id number] Social History Type Description Quantity Date Captured [...]
--- OUTSIDE RECORDS SUMMARY | 2024-07-24 15:53 | XMS_ITS | Clinical Summary ---
Author Organization [facility] Address [address] [place] [address] Care Team Providers Care Social Service Manager Name Role Phone [facility]- Primary Care Provider Medications busPIRone (BUSPAR) 15 MG tablet 08/08/2019 Active pravastatin (PRAVACHOL) 10 MG tablet Take 10 mg by mouth Active levothyroxine (SYNTHROID/LEVOT HROID) 25 MCG tablet Take 25 mcg by mouth Active gabapentin (NEURONTIN) 100 MG capsule Take 100 mg by mouth Active Social History Tobacco Use Types Packs/Day Years Used Date Smoking Tobacco: Never Assessed Adolescent Education Answer Date Record ed Getting School Help Needed Not on file 05/28 Comments Unknown Sex and Gender Information Value Date Recorded Sex Assigned at Not on file Legal Sex Female 3:41 AM HEATSET WINDER OPERATOR Gender Identity Not on file Sexual Orientation Not on file Last Filed Vital Signs Vital Sign Reading Time Taken Comments Blood Pressure 109/76 09/17/2020 11:15 PM HEATSET WINDER OPERATOR Pulse 91 09/17/2020 11:15 PM HEATSET WINDER OPERATOR Temperature 35.9 C (96.7 F) 09/17/2020 9:45 PM HEATSET WINDER OPERATOR Respiratory Rate 20 09/17/2020 8:35 PM HEATSET WINDER OPERATOR Oxygen Saturation 96% 09/17/2020 11:15 PM HEATSET WINDER OPERATOR Inhaled Oxygen Concentration - - Weight - - Height - - Body Mass Index - - Plan of Treatment Not on file Insurance BCBS OUT OF STATE Care Teams Social Service Manager Relationship Specialty Start Date End Date [facility]- [address] [place] [address] PCP - General 09/17/20
--- OUTSIDE RECORDS SUMMARY | 2024-07-24 15:53 | XMS_ITS | Referral Summary ---
Author Organization [facility] Address [address] [place] [address] Care Team Providers Care Assistant Professor Of Music Name Role Phone [facility]- Primary Care Provider Medications busPIRone (BUSPAR) [...] on file Legal Sex Female 3:41 AM SUPERVISOR PAINT Gender Identity Not on file Sexual Orientation Not on file Last Filed Vital Signs Vital Sign Reading Time Taken Comments Blood Pressure 109/76 09/17/2020 11:15 PM SUPERVISOR PAINT Pulse 91 09/17/2020 11:15 PM SUPERVISOR PAINT Temperature 35.9 C (96.7 F) 09/17/2020 9:45 PM SUPERVISOR PAINT Respiratory Rate 20 09/17/2020 8:35 PM SUPERVISOR PAINT Oxygen Saturation 96% 09/17/2020 11:15 PM SUPERVISOR PAINT Inhaled Oxygen Concentration - - Weight - - Height - - Body Mass Index - - Plan of Treatment Not on file Insurance BCBS OUT OF STATE Care Teams Assistant Professor Of Music Relationship Specialty Start Date End Date [facility]- [address] [place] [address] PCP - General 09/17/20
--- OUTSIDE RECORDS SUMMARY | 2024-07-24 15:53 | XMS_ITS | Data Portability ---
Author Organization [facility], Main Office Address [address] [place] [address] Assessment Encounter Date Assessment Date Assessment LastModified by Organization Details LastModified Time 04/12/2022 04/12/2022 Dee is a 46 yea r old female with a history of anxiety, depression and chronic pain due to fibromyalgia who came to the clinic today for medical cannabis re certification evaluation. [email or web address] Not available 04/12/2022 12:02:08 04/19/2023 04/19/2023 47-year-old godwin n with a history of fibromyalgia, PTSD, anxiety and depression here for recertification for medical cannabis. Has primary care and mental health care elsewhere. 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 Lab None record ed. Referral None record ed. Procedures None record ed. Surgeries None record ed. Imaging None record ed. Medication Orders None record ed. Patient TargetsNo targets recorded. Patient Instructions Encounter Date Encounter Id Patient Instructions Last Modified By Organization Details Last Modified Time 04/12/2022 [id number] Discussed potent ial adverse effects of medical cannabis which could include but not limited even though rare: increased heart rate, dizziness, Impaired concentration and memory, slower reaction times, negative zqxj-jc-[id number] interactions, increased risk of heart attack and stroke, increased appetite, potential for addiction, cyclic vomiting syndrome, hallucinations or mental illness, withdrawal symptoms. Alcohol can increase the nervous system side effects of cannabis (Schedule I substance) such as dizziness, drowsiness, and difficulty concentrating. Some people may also experience impairment in thinking and judgment. You should avoid or limit the use of alcohol while being treated with cannabis (Schedule I substance). Do not use more than the recommended dose of cannabis (Schedule I substance), and avoid activities requiring mental alertness such as driving or operating hazardous machinery until you know how the medication affects you. Most common side effects are tiredness, diarrhea and changes in appetite/weigh Patient consent for the release of information to the [facility] and to abide with rules and regulations regarding medical cannabis use that information can be found on the medical cannabis and the medical cannabis legislation in the [facility]. Inform of the need to inform her Primary provider if she starts a new medication or plans to become . Was told of the role of the provider in certifying the presence of a condition that the pharmacy at the dispensary will go over the different products with them, the amount to be taken and how they work. Patient agrees to follow the prescription guidelines from the pharmacy. Agrees to continue to follow up with medical treatment with the primary care provider Discussed with the Patient to develop realistic goals and expectations, and that for optimal relief of symptoms, will need to continue complementary modalities such as: Physical modalities and rehabilitation, behavioral health/Psychologica l management, pharmacotherapy. Explain that the provider only certifies that a condition exists and that the PharmD at the medical cannabis dispensing site will determine what type/dosage of cannabis is appropriate Patient agreed to follow up in 1 year for recertification, YW, AGNP [email or web address] Not available 04/12/2022 12:07:16 Dee is aware to seek emergency care as needed. Follow up in 1 year for recertification [email or web address] Not available 04/12/2022 12:07:57 Reason for Referral None Reported. Problems Name Problem SNOMED Code Status Onset Date Resolution Date Notes Provider Name and Address Organization Details Recorded Time Posttraum atic stress disorder 34723196 Active PTSD; IsAcute: Unspecifie d Deleted: 0 Not Available [facility] 3 19:24:07 Generaliz ed anxiety disorder 76012338 Active BRAEDEN; IsAcute: Unspecifie d Deleted: 1 Not Available [facility] 3 19:24:07 Bipolar II disorder 38887522 Active Bipolar 2 disorder; IsAcute: Unspecifie d Deleted: 1 Not Available [facility] 3 19:24:07 Varicella 99899740 Active Chicken pox; IsAcute: Unspecifie d Deleted: 0 Not Available [facility] 3 19:24:08 Asthma 233135329 Active Asthma; IsAcute: Unspecifie d Deleted: [address] [facility] 3 19:24:08 Irritable bowel syndrome 10494208 Active IBS; IsAcute: Unspecifie d Deleted: [address] [facility] 3 19:24:08 Chronic back pain 512412371 Active Chronic back pain; IsAcute: Unspecifie d Deleted: [address] [facility] 3 19:24:08 Pain around eye 34198910 Active Periorbita l pain; IsAcute: Unspecifie d Deleted: [address] [facility] 3 19:24:08 Chronic fatigue syndrome 54260006 Active Chronic fatigue syndrome; IsAcute: Unspecifie d Deleted: [address] [facility] 3 19:24:08 Premenstr ual dysphoric disorder 764760 Active Premenstru al dysphoric disorder; IsAcute: Unspecifie d Deleted: [address] [facility] 3 19:24:08 Obsession al thoughts 23511077 Active Mixed obsessiona l thoughts and acts; IsAcute: Unspecifie d Deleted: [address] [facility] 3 19:24:08 Depressiv e disorder 26834541 Active Depression ; IsAcute: Unspecifie d Deleted: [address] [facility] 3 19:24:08 Major depressiv e disorder 876027249 Active Major depression ; IsAcute: Chronic De leted: [address] [facility] 3 19:24:08 Long-term drug therapy Active Long-term use of medication ; IsAcute: Unspecifie d Deleted: [address] [facility] 3 19:24:09 Hyperlipi demia 52821568 Active Hyperlipid emia; IsAcute: Unspecifie d Deleted: [address] [facility] 3 19:24:09 Obstructi ve sleep apnea syndrome 31441108 Active Obstructiv e sleep apnea; IsAcute: Unspecifie d Deleted: [address] [facility] 3 19:24:09 Chronic pain syndrome 114510102 Active Chronic pain syndrome; IsAcute: Unspecifie d Deleted: [address] [facility] 19:24:09 Hypertens chrissie disorder 38513072 Active Hypertensi on; IsAcute: Unspecifie d Deleted: [address] [facility] 3 19:24:09 Panic disorder without agoraphob ia 29181825 Active Panic disorder without agoraphobi a; IsAcute: Unspecifie d Deleted: [address] [facility] 19:24:09 Pityriasi s rosea 18683984 Active Pityriasis rosea; IsAcute: Unspecifie d Deleted: [address] [facility] 19:24:10 Fatigue 45877901 Active Fatigue; IsAcute: Unspecifie d Deleted: [address] [facility] 19:24:10 Periodic limb movement disorder 062582171 Active Periodic limb movement disorder; IsAcute: Unspecifie d Deleted: [address] [facility] 19:24:10 Fibromyal traci 544958540 Active 2021 Joyce Trinh NP, [address] [place], [address] , [facility] 2 11:46:19 Uncomplic ated asthma 877305125 Active 2021 Joyce Trinh NP, [address] [place], [address] , [facility] 2 11:47:25 Disorder of cervical spine 732646849 Active 2021 Joyce Trinh NP, [address] [place], [address] , [facility] 2 11:47:38 Low back pain 679386277 Active 2021 Joyce Trinh NP, [address] [place], [address] , [facility] 2 11:48:25 Mixed anxiety and depressiv e disorder 628127690 Active 2021 Joyce Trinh NP, [address] [facility] , [place], [address] , [facility] 2 12:06:25 Notes:( (G89.29) Other chron ic pain (R53.82) Chronic fatigue, unspecified (G89.4) Chronic pain syndrome (R53.83) Other fatigue (M79.7) Fibromyalgia (B01.9) Varicella without complication (I10) Essential (primary) hypertension (L42) Pityriasis rosea (E78.5) Hyperlipidemia, unspecified (K58.9) Irritable bowel syndrome without diarrhea (F42.2) Mixed obsessional thoughts and acts (G47.33) Obstructive sleep apnea (adult) (pediatric) (G47.61) Periodic limb movement disorder (F32.81) Premenstrual dysphoric disorder (F43.10) Post-traumatic stress disorder, unspecified (F41.0) Panic disorder [episodic paroxysmal anxiety] Problem Notes None recorded. Medical Equipment None Reported. Allergies No known drug allergies Medications Name Sig Start Date Stop Date Status Note LastModified by Organization Details LastModified Time methocarb ally 500 mg tablet TAKE 1-2 TABLETS BY MOUTH UP TO 3 TIMES A DAY FOR UPPER NECK PAIN 04/20 completed Not Available Not Available Not Available prednison e 10 mg tablet TAKE 1 TABLET BY MOUTH DAILY. START ON DAY 13 04/12 completed Not Available Not Available Not Available atorvasta tin 20 mg tablet TAKE 1 TABLET BY MOUTH EVERY DAY FOR CHOLESTE ROL. STOP PRAVASTA TIN active Not Available Not Available No t Available ipratropi um 0.5 mg-albute rol 3 mg (2.5 mg base)/3 mL nebulizat ion soln USE 3 ML VIA NEBULIZE R FOUR TIMES DAILY active Not Available Not Available No t Available albuterol sulfate 2.5 mg/3 mL (0.083 %) solution for nebulizat ion TAKE 1 VIAL BY NEBULIZA TION EVERY 4 HOURS NEEDED FOR SHORTNES S OF BREATH OR WHEEZING . active Not Available Not Available No t Available trazodone 50 mg tablet TAKE 1 TABLET BY MOUTH EVERY NIGHT AT BEDTIME 04/20 completed Not Available Not Available Not Available azithromy dago 250 mg tablet TAKE 2 TABLETS BY MOUTH NOW THEN 1 TABLET DAILY ON DAYS 2-5. 04/20 completed Not Available Not Available Not Available valacyclo vir 1 gram tablet active Not Available Not Available Not Available hydrocodo ne 5 mg-acetam inophen 325 mg tablet TAKE 1 TO 2 TABLETS BY MOUTH EVERY 4 HOURS NEEDED 04/20 completed Not Available Not Available Not Available prazosin 1 mg capsule TAKE 1 CAPSULE BY MOUTH AT BEDTIME active Not Available Not Available No t Available fluconazo le 200 mg tablet TAKE 1 TABLET BY MOUTH EVERY 3 DAYS NEEDED 04/12 completed Not Available Not Available Not Available sucralfat e 1 gram tablet 04/20 completed Not Available Not Available Not Available prednison e 20 mg tablet active Not Available Not Available Not Available levothyro xine 25 mcg tablet TAKE 1 TABLET BY MOUTH DAILY active Not Available Not Available No t Available lamotrigi ne 25 mg tablet TAKE 1 TABLET BY MOUTH TWICE DAILY ALONG WITH 100MG TABLET FOR TDD OF 125MG TWICE DAILY active Not Available Not Available No t Available ketorolac 10 mg tablet TAKE 1 TABLET BY MOUTH THREE TIMES DAILY NEEDED 04/12 completed Not Available Not Available Not Available ketorolac 0.5 % eye drops INSTILL 1 DROP IN LEFT EYE FOUR TIMES DAILY BEGINNIN G 1 DAY BEFORE SURGERY AND USE UNTIL GONE 04/20 completed Not Available Not Available Not Available meloxicam 7.5 mg tablet TAKE 1 TO 2 TABLETS BY MOUTH DAILY 04/12 completed Not Available Not Available Not Available amoxicill in 875 mg tablet TAKE 1 TABLET BY MOUTH TWICE DAILY FOR 10 DAYS 04/12 completed Not Available Not Available Not Available prednisol one acetate 1 % eye drops,casandra pension SHAKE LIQUID AND INSTILL 1 DROP IN LEFT EYE FOUR TIMES DAILY BEGINNIN G 1 DAY BEFORE SURGERY AND USE UNTIL GONE 04/20 completed Not Available Not Available Not Available pantopraz ole 40 mg tablet,de layed release TAKE 1 TABLET BY MOUTH DAILY active Not Available Not Available No t Available buspirone 30 mg tablet TAKE 1 TABLET BY MOUTH TWICE DAILY 04/20 completed Not Available Not Available Not Available dexametha sone 4 mg tablet TAKE 2 TABLETS BY MOUTH ONCE DAILY FOR 5 DAYS 04/12 completed Not Available Not Available Not Available lisinopri l 10 mg tablet TAKE 1 TABLET BY MOUTH DAILY active Not Available Not Available No t Available Advair Diskus 250 mcg-50 mcg/dose powder for inhalatio n INHALE 1 PUFF BY MOUTH TWICE DAILY active Not Available Not Available No t Available gabapenti n 300 mg capsule TAKE 1 CAPSULE BY MOUTH DAILY 04/20 completed Not Available Not Available Not Available cephalexi n 500 mg tablet TAKE 1 TABLET BY MOUTH THREE TIMES DAILY 04/12 completed Not Available Not Available Not Available hydroxyzi ne HCl 25 mg tablet active Not Available Not Available No t Available pravastat in 20 mg tablet TAKE 1 TABLET BY MOUTH AT BEDTIME 04/20 completed Not Available Not Available Not Available lorazepam 1 mg tablet TAKE 1 TABLET BY MOUTH DAILY NEEDED active Not Available Not Available No t Available methylpre dnisolone 4 mg tablets in a dose pack FOLLOW PACKAGE DIRECTIO NS 04/12 completed Not Available Not Available Not Available metronida zole 0.75 % topical gel APPLY TOPICALL Y TO THE AFFECTED AREA TWICE DAILY 04/12 completed Not Available Not Available Not Available lamotrigi ne 100 mg tablet TAKE 1 TABLET BY MOUTH TWICE DAILY active Not Available Not Available No t Available Ventolin HFA 90 mcg/actua tion aerosol inhaler INHALE 2 PUFFS BY MOUTH EVERY 4 HOURS NEEDED FOR ASTHMA active Not Available Not Available No t Available buspirone 15 mg tablet TAKE 1 TABLET BY MOUTH THREE TIMES DAILY active 04/13 will taper off Not Available Not Available Not Available moxifloxa dago 0.5 % eye drops INSTILL 1 DROP IN LEFT EYE FOUR TIMES DAILY BEGINNIN G 1 DAY BEFORE SURGERY AND USE UNTIL GONE. DO NOT EXCEED 4 WEEKS 04/20 completed Not Available Not Available Not Available duloxetin e 60 mg capsule,d elayed release TAKE 1 CAPSULE BY MOUTH TWICE DAILY active 04/13 tapering off Not Available Not Available Not Available compounde d medicatio n active Not Available Not Available Not Available quetiapin e ER 50 mg tablet,ex tended release 24 hr active Not Available Not Available Not Available Rexulti 1 mg tablet TAKE 1 TABLET BY MOUTH EVERY DAY 04/12 completed Not Available Not Available Not Available Vitals Date Recorded Body weight Body mass index (BMI) Body height Body temperature Respiratory rate Heart rate Systolic blood pressure Diastolic blood pressure Provider Name and Address Organization Details Last Updated DateTime 2 19926.0 9 g 27.9 kg/m2 162 cm 98.2 [degF] 12 /min 70 /min 128 mm[Hg] 82 mm[Hg] Magaly Garcia [facility] 2 11:26:28 Date Recorded Body height Heart rate Respiratory rate Body mass index (BMI) Body weight Body temperature Systolic blood pressure Diastolic blood pressure Provider Name and Address Organization Details Last Updated DateTime 3 164.6 cm 88 /min 16 /min 26.4 kg/m2 29842.1 6 g 97.1 [degF] 130 mm[Hg] 76 mm[Hg] Christopher Jaimes [facility] 3 15:49:20 Social History Question Answer Notes LastModified by Organizat ion Details LastModified Time Tobacco Smoking Status Never Smoker Magaly Garcia [facility] 04/12/2022 11:24:01 Do You Or Have You Ever Used Any Other Forms Of Tobacco Or Nicotine? No [email or web address] Information not available 04/12/2022 Sex: Unknown Functional Status None recorded. Mental Status None recorded. Family History Nothing Reported Notes:DM II - MotherHyperten debbie - MotherChemical Dependency (alcohol) - Mother and FatherMental Health - Fathers side of the familySuicide - Father, uncle, grandma, great uncle and cousin Medical History No medical history recorded. Gynecological HistoryNo gynecological history recorded. Obstetrics History GPAL:G 0 P 0 0 0 0 Past Encounters Encounter ID Performer Location Encounter Start Date Encounter Closed Date Diagnosis/Indication Diagnosis SNOMED-CT Code Diagnosis ICD10 Code [id number] Joyce Trinh NP, [address] [place] [address] 04/12/2022 11:13:48 04/12/2022 12:13:56 Fibromyalgia 876874261 M79.7 Mixed anxi ety and depressive disorder 487288684 F41.8 [id number] Nishi Puckett NP, [address] [place] [address] 04/19/2023 15:30:22 04/19/2023 16:21:22 Fibromyalgia 493747921 M79.7 Posttrauma tic stress disorder 53598726 F43.10 Health Concerns Section Related Observation LastModified by Organization Detai ls LastModified Time None Recorded Concern Status LastModified by Organization Details LastModified Time None Recorded Advance Directives Directive None Recorded Payers Encounter Date Sequence Insurance Name Policy Number Policy Walls Covered Member ID Walls Member ID Guarantor Name 04/12/2022 1 [place] [id number] Justus Santillan [id number] 04/12/2022 1 [place] Dee Santillan [id number] 04/19/2023 1 [place] [id number] Justus Santillan [id number] 04/19/2023 1 [place] Dee Santillan [id number] Notes Date Note Type Note Provider Name and Address Organization Details Recorded Time 04/12/2022 text/html Dee is a 46 yea r old female with a history of anxiety, depression and chronic pain due to fibromyalgia who came to the clinic today for medical cannabis re certification evaluation. PEG=2She has a pcp and psych that she sees at [facility], they are managing all of her other medications and conditions Chronic pain due to fibromyalgia, depression and anxiety. Pain has reduced since starting the medical cannabis program. Noticing improvement in anxiety and depression. Sleep has also improve. No negative side effects seen in the cannabis use. Using the vaporizer. Has reduced the gabapentin and muscles relaxant since starting on the cannabis program Joyce Trinh, [employer], [address] , [place], [address], [facility] 04/12/2022 12:08:19 04/19/2023 text/html Dee comes to recertify for medical cannabis for chronic pain related to fibromyalgia. She reports that the medical cannabis continues to be helpful and she has taken various delivery methods and forms of it. She also utilizes OTC Gummies which help her to relax. She has noticed that her pain is fairly well controlled and that the medical cannabis also helps her anxiety and depression. She reports a history of PTSD and is on prazosin to help with nightmares. She has seen a new spring up supervisor in the last couple of weeks and has started to taper duloxetine while increasing lamotrigine and adding quetiapine. She reports her mood has been very difficult this last week. She has been dealing with a lot of irritability, anxiety and depression. She has some thoughts to be better off but reports no suicidal plans or intent. She states she would never think about it due to her children. Her PHQ-9 score today is 21 and her BRAEDEN score is 21. Her average PEG score is 1. Dee reports that she has not met with the pharmacist at the dispensary in a while and has set up a meeting for this coming Tuesday. She is interested in checking on various new strains available and flower. She is hoping she can find some things to help a little bit better with her anxiety and sleep. Medication changes reviewed and updated in the chart. Nishi Puckett NP, [address] [facility] , [place], [address], [facility] 04/20/2023 11:01:27 OBGyn Episode No OBEpisode recorded.
--- OUTSIDE RECORDS SUMMARY | 2024-07-24 15:53 | XMS_ITS | Clinical Summary ---
Author Organization [facility] Address [place], [place] [address] Care Team Providers Care Corporate Legal Assistant Name Role Phone Юлия Rankin PA-C Primary Care Provider + [phone] Allergies No known active allergies Medications Medication [...] Comments Blood Pressure 117/72 09/13/2023 12:55 PM CUSTOMS COLLECTOR Pulse 71 09/13/2023 12:55 PM CUSTOMS COLLECTOR Temperature 36 C (96.8 F) 09/13/2023 12:35 PM CUSTOMS COLLECTOR Respiratory Rate 16 09/13/2023 12:55 PM CUSTOMS COLLECTOR Oxygen Saturation 100% 09/13/2023 12:55 PM CUSTOMS COLLECTOR Inhaled Oxygen Concentration - - Weight 66.7 kg (147 lb) 09/12/2023 3:23 PM CUSTOMS COLLECTOR Height 162.6 cm (5' 4) 09/12/2023 3:23 PM CUSTOMS COLLECTOR Body Mass Index 25.23 09/12/2023 3:23 PM CUSTOMS COLLECTOR Plan of Treatment Health Maintenance Due Date [...] Completed 04/01/2008 Medical Devices Implanted Type Area Solderer Assembler Device Identifier Shelf Expiration Date Model / Serial / Lot Iol Chambers +21 [employer]andra[employer] [id number] - [id number] Implanted:Qty: 1 on 09/13/2023 by Vero Ramirez MD at [facility] Left: Eye [employer] 04/08/2025 [id number] / [id number] / Procedures Procedure Name Priority Date/Time Associated Diagnosis Comments DIVINE HEALER THIN PREP PAP SCREEN IMAGED Routine 02/01/2020 2:00 PM CDT XR MAMMO BILAT SCREEN FFDM (IA) Routine 10/08/2015 3:22 PM CUSTOMS COLLECTOR Visit for screening mammogram LIPID PANEL W REFLEX MEASURED LDL Routine 08/05/2014 5:13 PM CUSTOMS COLLECTOR HYPERCHOLESTEROLEMI A, PURE from Last 3 Months or Most Recently Relevant to Health Maintenance Results * DIVINE HEALER THIN PREP PAP SCREEN IMAGED (02/01/2020 2:00 PM CDT) Case Report Gynecologic Cytology Report Case: [id number] Authorizing Provider: Юлия Rankin PA-C Collected: 02/01/2020 1400 Order[address] Location: [facility] Received: 02/04/2020 0710 First Screen: Sage Melendrez Specimen: DIVINE HEALER ThinPrep Vial Screening, Cervical/Vaginal 02/07/2020 2:28 PM CDT [facility] INTERPRETATION/ RESULT NEGATIVE FOR INTRAEPITHELIAL LESION OR MALIGNANCY (NIL) (none) 02/07/2020 2:28 PM CDT [facility] IMEN ADEQUACY Satisfactory for evaluation Endocervical component present 02/07/2020 2:28 PM CDT [facility] HPV REQUEST HPV and PAP 02/07/2020 2:28 PM CDT [facility] Date of LMP 01/11/2020 02/07/2020 2:28 PM CDT [facility] Last Pap Date 02/07/2020 2:28 PM CDT [facility] Comment:unknown Additional Information 02/07/2020 2:28 PM CDT [facility] Comment: Interpreted at [facility] - [address], [place] [address] Automated Review Successful 02/07/2020 2:28 PM CDT [facility] Comment:Specimen processed s uccessfully by automated casing inspector device, [employer]ager [employer]Prep Imaging System, [employer] ANCILLARY TESTING DIVINE HEALER HPV Ordered, Please see separate report 02/07/2020 2:28 PM CDT [facility] Note The pap test is a screening technique, not a diagnostic procedure. It is used primarily to screen for squamous cancers and precursor lesions. Published studies have shown that it is subject to both false negative and false positive results. The pap test should not be used as the sole means to diagnose or exclude pre-malignant and malignant lesions. 02/07/2020 2:28 PM CDT [facility] Other (Cervical/Vagina l) 02/01/2020 2:00 PM CDT 02/04/2020 7:10 AM CDT Юлия Rankin PA-C PATHOLOGY/CYTOLOGY [facility] [address] [place] [address], [place] * XR MAMMO BILAT SCREEN FFDM (10/08/2015 3:22 PM CUSTOMS COLLECTOR) Anatomical Region Laterality Modality BREASTS, Breast Left, Breast Right Bilateral Mammography Impressions 10/09/2015 12:22 PM CUSTOMS COLLECTOR There is no radiographic evidence for malignancy. Recommend annual mammograms. A lay language report of this examination will be provided to the patient. MAMMOGRAM ASSESSMENT: ACR 2 Benign Narrative 10/09/2015 12:22 PM CUSTOMS COLLECTOR XR MAMMO BILAT SCREEN FFDM [G0202.0] CLINICAL HISTORY: This is an asymptomatic 40 y.o. patient. INDICATION FOR EXAM: Mammogram Screening. TECHNIQUE: CC & MLO views were obtained. This digital study was evaluated with the assistance of Computer-Aided Detection. COMPARISON FILMS: Yes 08/21/14 [facility] 08/03/13 [facility] FINDINGS: Mammographically, the breast tissue is almost entirely fat. No suspicious masses or microcalcifications. Benign appearing calcifications within both breasts and Post surgical changes within both breasts. Stacie Rosado MD MAMMO * LIPID PANEL W REFLEX MEASURED LDL (08/05/2014 5:13 PM CUSTOMS COLLECTOR) CHOLESTEROL,TOTAL 172 100 - 199 mg/dL 08/06/2014 3:47 PM CUSTOMS COLLECTOR [facility] TRIGLYCERIDES 84 <150 mg/dL 08/06/2014 3:47 PM CUSTOMS COLLECTOR [facility] HDL CHOLESTEROL 53 >40 mg/dL 4 3:47 PM CUSTOMS COLLECTOR [facility] NON-HDL CHOLESTEROL 119 <145 mg/dl 08/06/2014 3:47 PM CUSTOMS COLLECTOR [facility] CHOL/HDL RATIO 3.25 <4.50 08/06/2014 3:47 PM CUSTOMS COLLECTOR [facility] LDL CHOLESTEROL 102 <=130 mg/dL 08/06/2014 3:47 PM CUSTOMS COLLECTOR [facility] PATIENT STATUS FASTING 08/06/2014 3:47 PM CUSTOMS COLLECTOR [facility] Blood specimen (specimen) BLOOD SPECIMEN / Unknown Venipuncture / Unknown 08/05/2014 5:13 PM CUSTOMS COLLECTOR 08/05/2014 5:13 PM CUSTOMS COLLECTOR Autumn Mota DO CHEMISTRY [facility] [address] [place] [address], [place] from Last 3 Months or Most Recently [...] 8:37 AM 03/05/2009 4:18 PM Care Teams Corporate Legal Assistant Relationship Specialty Start Date End Date Юлия Rankin PA-C [address] [place] [address] PCP - General Emergency Medicine 02/16/22
--- NOTE | 2024-07-24 16:20 | CRLHL7_ITS ---
For Patients: As a result of the Century Cures Act, medical imaging exams and procedure reports are released immediately into your electronic medical record. You may view this report before your referring provider. If you have questions, please contact your health care provider. BILATERAL SCREENING MAMMOGRAM WITH COMPUTER-AIDED DETECTION AND TOMOSYNTHESIS TECHNIQUE: CC and MLO views were obtained. These mammographic images have been obtained using full-field digital technique. These mammographic images were interpreted with the benefit of computer-aided detection. Breast Tomosynthesis was used in this interpretation. COMPARISON FILM: 09/22/22, 08/04/21, 01/30/19. FINDINGS: There are scattered areas of fibroglandular density. IMPRESSION: There is no radiographic evidence for malignancy. ASSESSMENT: BI-RADS Category 2: Benign RECOMMENDATION: Routine screening mammogram in 1 year. A lay language report of this examination will be provided to the patient. Sp Smith M.D. Diagnostic Radiologist [email or web address] SP/Dictated by: Sp Smith MD @ 07/25/2024 12:20:00 PM (Electronically Signed)
== END 2024-07-24 15:51 | disposition home or self-care (01) ==
LOC: MAMMO 15:51
PROVIDERS: PCP Physician Assistant Medical; Visit Provider Physician Assistant Medical
DX: Z12.31 Encounter for screening mammogram for malignant neoplasm of breast (principal)
CPT/HCPCS: 77063; 77067

== ENCOUNTER 2025-07-30 07:54 | Outpatient (CLI) | payer BC, SELFPAY | END 2025-07-30 07:55 | disposition home or self-care (01) | LOC: NFLDREF 08-04 20:42 | PROVIDERS: PCP Physician Assistant Medical; Referring Provider Physician Assistant Medical; Visit Provider Physician Assistant Medical | DX: Z13.9 Encounter for screening, unspecified (principal); E03.9 Hypothyroidism, unspecified; E55.9 Vitamin D deficiency, unspecified | CPT/HCPCS: 80053; 80061; 82306; 84443 ==

== ENCOUNTER 2025-08-19 10:17 | Outpatient (CLI) | payer BC, SELFPAY ==
--- NOTE | 2025-08-19 11:33 | P.ANES_ITS ---
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
--- NOTE | 2025-08-19 11:33 | W.ANESCHARGE ---
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
== END 2025-08-19 10:18 | disposition home or self-care (01) ==
LOC: OP CLINIC 10:19
PROVIDERS: PCP Physician Assistant Medical; Visit Provider Internal Medicine
DX: Z86.0100 Personal history of colon polyps, unspecified (principal); K57.30 Diverticulosis of large intestine without perforation or abscess without bleeding
CPT/HCPCS: 00811; 45378; J2704